=== PATIENT | male | born 1970 | race Caucasian/White ===

== ENCOUNTER 2016-10-11 09:43 | Day surgery (SDC) | payer MEDICAID, OTHER ==
[~2016-10-11 09:43] MED LIST: Lactated Ringers 1,000 ML IV SCH; Lidocaine 2% 5 ML SDV ONE; Propofol 200 MG/20 ML SDV ONE; Sodium Chloride 0.9% 10 ML Syringe FLUSH PRN; Sodium Chloride 0.9% 2.5 ML Syringe FLUSH PRN
--- NOTE | 2016-10-11 10:11 | PCM.PREANE ---
Preanesthetic Assessment - Anesthesia/Transfusion/Family Hx Anesthesia History: Prior Anesthesia Without Reaction Family History of Anesthesia Reaction: No Transfusion History: No Prior Transfusion(s) Intubation History: Unknown - Review of Systems General: No Symptoms Pulmonary: No Symptoms Cardiovascular: No Symptoms Gastrointestinal: Abdominal pain Neurological: No Symptoms Other: Reports: None - Physical Assessment Height: 1.73 m Weight: 88.451 kg ASA Class: 2 Mental Status: Alert & Oriented x3 Airway Class: Mallampati = 2 Dentition: Reports: Normal Dentition Thyro-Mental Finger Breadths: 2 Mouth Opening Finger Breadths: 2 ROM/Head Extension: Full Lungs: Clear to auscultation, Normal respiratory effort Cardiovascular: Regular Rate, Regular Rhythm, No Murmurs - Allergies Allergies/Adverse Reactions: Allergies Allergy/AdvReac Type Severity Reaction Status Date / Time No Known Allergies Allergy Verified 10/09/16 15:16 - Blood Blood Available: No - Anesthesia Plan Pre-Op Medication Ordered: None - Acknowledgements Anesthesia Type Planned: MAC Pt an Appropriate Candidate for the Planned Anesthesia: Yes Alternatives and Risks of Anesthesia Discussed w Pt/Guardian: Yes Pt/Guardian Understands and Agrees with Anesthesia Plan: Yes PreAnesthesia Questionnaire - Past Health History Medical/Surgical History: Denies Medical/Surgical History Cardiovascular History: Reports: Hypertension Gastrointestinal History: Reports: GERD, Helicobacter pylori (h/o helicobacter pylori) - Past Surgical History HEENT Surgical History: Reports: Oral surgery Musculoskeletal Surgical History: Reports: Other (see below) (foot surgery) - SUBSTANCE USE Smoking Status *Q: Never Smoker Second Hand Smoke Exposure: No Number of Drinks Per Day: 0 Recreational Drug Use History: No - HOME MEDS Home Medications: Home Meds Famotidine [Pepcid] 20 mg PO DAILY 10/09/16 [History] Finasteride 1 mg PO DAILY 10/09/16 [History] Lisinopril/Hydrochlorothiazide [Lisinopril-Hctz 10-12.5 mg Tab] 1 tab PO DAILY 10/09/16 [History] - CURRENT (IN HOUSE) MEDS Current Meds: Current Medications Lactated Ringer's (Ringers, Lactated) 1,000 mls @ 125 mls/hr IV ASDIRECTED SONDRA Last Admin: 10/11/16 09:52 Dose: 125 mls/hr Sodium Chloride (Saline Flush) 10 ml FLUSH ASDIRECTED PRN PRN Reason: Keep Vein Open Sodium Chloride (Saline Flush) 2.5 ml FLUSH ASDIRECTED PRN PRN Reason: Keep Vein Open Discontinued Medications Lidocaine (Xylocaine-Mpf 2%) Confirm Administered Dose 5 ml .ROUTE .STK-MED ONE Stop: 10/11/16 07:41 Propofol (Diprivan 20 Ml) Confirm Administered Dose 400 mg .ROUTE .STK-MED ONE Stop: 10/11/16 07:41
[2016-10-11] MEDS ORDERED: Propofol 200 MG/20 ML SDV ONE (11:43)
--- NOTE | 2016-10-11 12:06 | PCM.POSTAN ---
POST ANESTHESIA ASSESSMENT - MENTAL STATUS Mental Status: alert, oriented - RESPIRATORY Respiratory Status: respiratory rate WNL, airway patent, O2 saturation stable - CARDIOVASCULAR CV Status: pulse rate WNL, blood pressure stable - GASTROINTESTINAL GI Status: no symptoms - POST OP HYDRATION Hydration Status: adequate & stable - OBSERVATIONS Free Text/Narrative:: no anesthesia problems
--- NOTE | 2016-10-11 13:01 | PCM.OPNOTE ---
- General Post-Op/Procedure Note Date of Surgery/Procedure: 10/11/16 Operative Procedure(s): Diagnostic EGD Findings: Pyloric stricture Pre Op Diagnosis: Epigastric pain Post-Op Diagnosis: Pyloric stricture Anesthesia Technique: CLARA Primary Surgeon: Larisa Geronimo Condition: Good
--- NOTE | 2016-10-11 17:52 | OR ---
SURGEON: MIGUELANGEL RAY MD DATE OF PROCEDURE: 10/11/2016 PREOPERATIVE DIAGNOSIS: Epigastric pain. POSTOPERATIVE DIAGNOSIS: Pyloric stricture. PROCEDURE PERFORMED: Diagnostic esophagogastroduodenoscopy. INSTRUMENT USED: Olympus endoscope. ANESTHESIA: MAC. EXTENT OF EXAM: To the pylorus. PREPARATION: Good. LIMITATIONS: Pyloric stricture. INDICATIONS FOR EXAMINATION: The patient is a 46-year-old male with intermittent epigastric pain. The patient was scheduled back in June to have a diagnostic EGD performed. Due to insurance issues and concerns that there was nothing wrong with him, he cancelled the procedure. The patient returns and would like to have the procedure performed since the pain is still present. The patient and I discussed the procedure as well as expected perioperative course. We discussed the risks, including bleeding, infection, damage to surrounding structures, including perforation. The patient verbalized understanding and wishes to proceed. PROCEDURE IN DETAIL: The patient was brought to the endoscopy suite and placed in the beach chair position. A time-out was completed verifying the patient's name, age, date of , allergies, and procedure to be performed. A bite block was placed in the patient's mouth and monitored anesthesia care was induced. Continuous oxygen was provided via nasal cannula throughout the procedure. After adequate sedation was achieved, a well lubricated endoscope was passed down over the patient's tongue into the esophagus and down into the stomach. The endoscope was able to reach the pylorus, however, I was unable to transverse past the pylorus into the duodenum. The pylorus appeared strictured and I was unable to pass my scope through this despite multiple attempts and maneuvers. Biopsies were taken of the pylorus. The pylorus itself did not show any signs of overt malignancy. Pictures were taken of the pylorus itself. The scope was retroflexed to visualize the esophageal hiatus, which appeared normal. The remainder of the gastric mucosa appeared normal but biopsies were taken of the antrum, body, and fundus and sent for H. pylori testing. The scope was then brought into the esophagus and a photograph was taken at the GE junction, which appeared normal. The remainder of the esophageal mucosa appeared normal. The scope was removed from the patient and the procedure terminated. The patient tolerated the procedure well and was taken to the PACU in stable condition. ENDOSCOPIC DIAGNOSIS: Pyloric stricture. RECOMMENDATIONS: Followup in clinic in 1-[address] weeks[address] We will also place the patient on 40 mg of pantoprazole daily. DELICIA CANALES /[id number]
[2016-10-15 14:44] VITALS: BP 137/91
== END 2016-10-11 12:27 | disposition home or self-care (01) ==
LOC: MW.SDS 09:43
PROVIDERS: ATTEND Surgery
PROC: 0DB68ZX Excision of Stomach, Via Natural or Artificial Opening Endoscopic, Diagnostic (ICD-10-PCS; principal; 2016-10-11)
DX: K29.50 Unspecified chronic gastritis without bleeding (principal); K31.1 Adult hypertrophic pyloric stenosis; I10 Essential (primary) hypertension; K21.9 Gastro-esophageal reflux disease without esophagitis; Z98.890 Other specified postprocedural states; Z79.899 Other long term (current) drug therapy
CPT/HCPCS: 43239; J7120; 00740; 88305; 88312; J2704

== ENCOUNTER → 2016-10-26 | Outpatient (CLI) | payer MEDICAID ==
[~2016-10-26] MED LIST changes: +Iopamidol 755 MG/ML 500 ML Multipack Bottle IVPUSH STA; -Lactated Ringers 1,000 ML IV SCH; -Lidocaine 2% 5 ML SDV ONE; -Propofol 200 MG/20 ML SDV ONE; -Sodium Chloride 0.9% 10 ML Syringe FLUSH PRN; -Sodium Chloride 0.9% 2.5 ML Syringe FLUSH PRN
--- NOTE | 2016-10-26 20:22 | CT ---
EXAM DATE: 10/26/16 PATIENT'S AGE: 46 Patient: JOSE ACOSTA Facility: [place], [place] Site . Site : 1970 Study: CT Abdomen/Pelvis [id number]/12/2017 10:09:30 AM Ordering Physician: Juanpablo Peres Final Report: CLINICAL INFORMATION: 46-year-old male with upper abdominal symptoms, concern for possible adult ( acquired) hypertrophic pyloric stenosis. TECHNIQUE: Contrast-enhanced CT of the abdomen and pelvis was obtained in noncontrast, arterial, and venous phases. Enteric contrast was administered.Coronal and sagittal reformatted images were obtained. Contrast: 100 mL of Isovue 370 intravenous contrast was injected uneventfully prior to image acquisition. Radiation Dose Estimate (Total Exam DLP): 821.4 mGy-cm. COMPARISON: None available FINDINGS: Lower Chest: Lung bases: No focal airspace opacities or pleural effusions. Heart/Pericardium: Heart normal in size. No pericardial effusion. . Abdomen/Pelvis: Liver: Unremarkable. Gallbladder: Unremarkable. Spleen: Unremarkable. Adrenal glands: Unremarkable. Kidneys: Enhance symmetrically without hydronephrosis. Pancreas: Unremarkable. Lymph nodes: No retroperitoneal, mesenteric, inguinal, or pelvic adenopathy by CT criteria. Bowel: Stomach is normal in caliber without evidence for pyloric stenosis/ obstruction. Small and large bowel loops are normal in caliber without evidence for obstruction. Normal appendix is seen in the right lower quadrant. Urinary bladder: Limited evaluation due to underdistention. No gross pathology. Reproductive structures: Prostate normal in size. Coarse calcifications within the prostate likely represent sequela of prior prostatitis. No abdominal/pelvis ascites or free intraperitoneal air. Musculoskeletal: : There is grade 1 anterolisthesis of L5 on S1. Visualized osseous structures otherwise preserved. IMPRESSION: 1. No evidence for gastric abnormality to suggest pyloric stenosis/obstruction. Bowel is normal in caliber without evidence for obstruction. PLEASE NOTE THAT ALL CT SCANS AT THIS FACILITY USE DOSE MODULATION, ITERATIVE RECONSTRUCTION, AND/OR WEIGHT-BASED DOSING WHEN APPROPRIATE TO REDUCE RADIATION TO LOW REASONABLY ACHIEVABLE. Dictated by Larry Robles MD @ Oct 26 2016 11:45AM (Electronic Signature) Report Signed by Proxy. [facility]
== END ==
LOC: MW.DI 09:17
PROVIDERS: ATTEND Surgery
DX: K31.1 Adult hypertrophic pyloric stenosis (principal)
CPT/HCPCS: 74177; Q9967

== ENCOUNTER 2019-02-11 07:32 | Day surgery (SDC) | payer MEDICAID ==
[~2019-02-11 07:32] MED LIST changes: -Iopamidol 755 MG/ML 500 ML Multipack Bottle IVPUSH STA; +Lactated Ringers 1,000 ML IV SCH
--- NOTE | 2019-02-11 08:07 | PCM.PREANE ---
Preanesthetic Assessment - Anesthesia/Transfusion/Family Hx Anesthesia History: Prior Anesthesia Without Reaction Family History of Anesthesia Reaction: No Transfusion History: No Prior Transfusion(s) Intubation History: Unknown - Review of Systems General: No Symptoms Pulmonary: No Symptoms Cardiovascular: No Symptoms Gastrointestinal: Diarrhea, Hematochezia Neurological: No Symptoms Other: Reports: None - Physical Assessment NPO Status Date: 02/10/19 NPO Status Time: 11:59 Vital Signs: Last Vital Signs Temp 35.8 C 02/11/19 07:45 Pulse 89 02/11/19 07:45 Resp 16 02/11/19 07:45 BP 120/80 02/11/19 07:45 Pulse Ox 96 02/11/19 07:45 Height: 5 ft 8 in Weight: 87.997 kg ASA Class: 2 Mental Status: Alert & Oriented x3 Airway Class: Mallampati = 2 Dentition: Reports: Normal Dentition Thyro-Mental Finger Breadths: 3 Mouth Opening Finger Breadths: 3 ROM/Head Extension: Full Lungs: Clear to Auscultation, Normal Respiratory Effort Cardiovascular: Regular Rate, Regular Rhythm - Allergies Allergies/Adverse Reactions: Allergies Allergy/AdvReac Type Severity Reaction Status Date / Time No Known Allergies Allergy Verified 02/06/19 10:21 - Blood Blood Available: No - Anesthesia Plan Pre-Op Medication Ordered: None - Acknowledgements Anesthesia Type Planned: MAC Pt an Appropriate Candidate for the Planned Anesthesia: Yes Alternatives and Risks of Anesthesia Discussed w Pt/Guardian: Yes Pt/Guardian Understands and Agrees with Anesthesia Plan: Yes PreAnesthesia Questionnaire - Past Health History Medical/Surgical History: Denies Medical/Surgical History HEENT History: Reports: None Cardiovascular History: Reports: Hypertension Respiratory History: Reports: None Gastrointestinal History: Reports: Chronic Diarrhea, GERD, Helicobacter Pylori Genitourinary History: Reports: None Musculoskeletal History: Reports: None Neurological History: Reports: None Psychiatric History: Reports: Anxiety Endocrine/Metabolic History: Reports: None Hematologic History: Reports: None Immunologic History: Reports: None Oncologic (Cancer) History: Reports: None Dermatologic History: Reports: None - Past Surgical History Head Surgeries/Procedures: Reports: None HEENT Surgical History: Reports: Oral Surgery Cardiovascular Surgical History: Reports: None Respiratory Surgical History: Reports: None GI Surgical History: Reports: EGD (2 years ago) Male Surgical History: Reports: None Endocrine Surgical History: Reports: None Neurological Surgical History: Reports: None Musculoskeletal Surgical History: Reports: Other (See Below) Other Musculoskeletal Surgeries/Procedures:: achillies tendon repair Oncologic Surgical History: Reports: None Dermatological Surgical History: Reports: None - SUBSTANCE USE Smoking Status *Q: Never Smoker Recreational Drug Type: Reports: Marijuana/Hashish - HOME MEDS Home Medications: Home Meds Finasteride 1 mg PO DAILY 10/09/16 [History] Lisinopril/Hydrochlorothiazide [Lisinopril-Hctz 10-12.5 mg Tab] 1 tab PO DAILY 10/09/16 [History] Aspirin [[place] Aspirin] 81 mg PO DAILY 02/06/19 [History] - CURRENT (IN HOUSE) MEDS Current Meds: Current Medications Lactated Ringer's (Ringers, Lactated) 1,000 mls @ 125 mls/hr IV ASDIRECTED [facility] Last Admin: 02/11/19 07:45 Dose: 125 mls/hr
[2019-02-11] MEDS ORDERED: Midazolam 1 MG/ML 2 ML SDV ONE (09:04)
[2019-02-11] MEDS ORDERED: Propofol 200 MG/20 ML SDV ONE ×4 (09:04→09:43)
[2019-02-11] MEDS ORDERED: Lidocaine 2% 5 ML SDV ONE (09:04)
[2019-02-11] MEDS ORDERED: Ondansetron 4 MG/2 ML SDV IVPUSH ONE (10:15)
[2019-02-11] MEDS ORDERED: Ondansetron 4 MG/2 ML SDV ONE (10:16)
--- NOTE | 2019-02-11 10:31 | PCM.OPNOTE ---
- General Post-Op/Procedure Note Date of Surgery/Procedure: 02/11/19 Operative Procedure(s): egd w bx and colonoscopy w biopsy Findings: see dict [id number] Pre Op Diagnosis: rectal bleed Post-Op Diagnosis: Same Anesthesia Technique: Moderate Sedation Primary Surgeon: Aldo Mahmood Pathology: egd bx colon bx Complications: None Condition: Good
--- NOTE | 2019-02-11 11:02 | PCM.POSTAN ---
POST ANESTHESIA ASSESSMENT - MENTAL STATUS Mental Status: Alert, Oriented - VITAL SIGNS Vital Signs: Last Vital Signs Temp 36.3 C 02/11/19 10:39 Pulse 69 02/11/19 10:39 Resp 16 02/11/19 10:39 BP 158/83 H 02/11/19 10:39 Pulse Ox 97 02/11/19 10:39 - RESPIRATORY Respiratory Status: Respiratory Rate WNL, Airway Patent, O2 Saturation Stable - CARDIOVASCULAR CV Status: Pulse Rate WNL, Blood Pressure Stable - GASTROINTESTINAL GI Status: No Symptoms - PAIN Pain Score: 0 - POST OP HYDRATION Hydration Status: Adequate & Stable - OBSERVATIONS Free Text/Narrative:: no anesthesia problems
--- NOTE | 2019-02-11 11:03 | PCM48HPAN ---
Post Anesthesia Note - EVALUATION WITHIN 48HRS OF ANESTHETIC Vital Signs in Normal Range: Yes Patient Participated in Evaluation: Yes Respiratory Function Stable: Yes Airway Patent: Yes Cardiovascular Function Stable: Yes Hydration Status Stable: Yes Pain Control Satisfactory: Yes Nausea and Vomiting Control Satisfactory: Yes Mental Status Recovered: Yes Vital Signs: Last Vital Signs Temp 36.3 C 02/11/19 10:39 Pulse 69 02/11/19 10:39 Resp 16 02/11/19 10:39 BP 158/83 H 02/11/19 10:39 Pulse Ox 97 02/11/19 10:39 - COMMENTS/OBSERVATIONS Free Text/Narrative:: no anesthesia problems
[2019-02-11 11:12] VITALS: BP 157/91
--- NOTE | 2019-02-11 14:16 | OR ---
SURGEON: Aldo Mahmood MD DATE OF PROCEDURE: 02/11/2019 PREOPERATIVE DIAGNOSES: Rectal bleeding and change in bowel habit. POSTOPERATIVE DIAGNOSES: EGD findings are gastritis and gastroesophageal reflux disease and colonoscopy finding is colitis. PROCEDURES PERFORMED: Esophagogastroduodenoscopy with biopsy and colonoscopy with biopsy. DESCRIPTION OF PROCEDURE: EGD: The patient was taken to the endoscopy room, and with the AIR DUCT MECHANIC, Diprivan was administered. A well-lubricated EGD scope was gently inserted through the oropharynx, down the esophagus, passing through the gastroesophageal junction, into the stomach. The mucosa was examined upon the passage. Any etiology will be noted. Once in the stomach, we continued to advance to the distal antrum, passed through the pylorus into the second portion of the duodenum. Again, the mucosa was examined for any abnormality and etiology. The scope was then retrieved back to the stomach and then retroflexed to look at the fundus of the stomach. If a biopsy was indicated, we will biopsy the antrum, body, and gastroesophageal junction. The air will be sucked out while the scope is retrieved to reduce the patient's discomfort. The patient tolerated the procedure well. There were no intraoperative complications. Dr. Mahmood was present through the whole procedure. Prior to surgery, a time-out had been called, the patient identified, procedure identified and antibiotic administered. The patient was taken to the endoscopy room. A time out was called, patient identified, and procedure identified. Diprivan was then administrated. Patient went from awake to sleep, hearing doctor talking or door closing is normal. Perineum inspection and digital examination were then performed. A well- lubricated colonoscope was gently inserted through the rectum, advanced past the rectosigmoid junction, the descending colon, splenic flexure, transverse colon, hepatic flexure, ascending colon, arrived to the cecum. Cecum was identified as dictated in the finding. Then the scope was carefully withdrawn while attention was paid to the mucosal surface for any abnormality. Air will be sucked out during the scope withdrawal. At the rectum, retroflexed to examine any rectal diseases, fistula or hemorrhoids. During mucosal examination, abnormality or polyp was noted; picture taken and biopsy performed. Patient tolerated procedure well. There were no intraoperative complications, and Dr. Mahmood was present throughout the whole procedure. FINDINGS: EGD findings in detail: 1. The patient is easily sedated with AIR DUCT MECH[employer]IC and Diprivan, the patient is soundly snoring. 2. Oropharynx and proximal esophagus are free of disease and GE junction at 40 shows moderate salmon-colored change, suggests there is some mild to moderate acid reflux. Stomach rugae are normal in appearance and antrum is quite inflamed in several areas, looks like it is a healed ulcer, and has moderate amount of inflammation. Duodenum was grossly normal. Retroflexed look at the fundus of stomach, there is no hiatal hernia. Biopsy done at antrum, which in several area is inflamed, and biopsied at those area; biopsied at body; and biopsied at GE junction at 40 and sucked out the gas while scope pulling out. During the whole study, there is no food particle or bile observed, except in the duodenum, there was some bile and there were a couple of spots of blood in the stomach, very very small, tiny, but it is there. Colonoscopy findings: 1. The patient is easily sedated with AIR DUCT MECHANIC and Diprivan, the patient is soundly snoring. 2. Bowel prep is average with some liquid stool, no semi-formed stool. Colon is rather straightforward. Cecum indicated by ileocecal fold, one-to-one indentation, and appendiceal orifice. Light emittance is not observed and ScopeGuide is pointing south. The patient does not have diverticulosis or polyp, but the patient has moderate to severe colitis from the anal area all the way to almost like 40 cm when the scope came out. So concentrated on the sigmoid to the left colon, severe colitis, and in some area some whitish exudate, suggests possible pseudomembranes. Also, a localized spot of inflammation at around 90 cm when the scope went in to do the biopsy and also all cecum biopsied thinking about inflammatory bowel disease and then the colon was biopsied in various areas as indicated by the pathology report like 40 cm, 30 cm, and 10 cm and anal verge. Inflammation seemed to be concentrated around 0 to 40 cm and getting much worse as we were getting close to the anal area, but there is no blood, it is just very inflamed. The patient would benefit from: a. Start PPI for his gastritis, 20 mg omeprazole every day and refill three times for one month. b. The patient probably will benefit to have a GI consult in light of the situation that has been going on for more than month or years. The patient probably would benefit to be followed by GI if it is confirmed inflammatory bowel disease. LIANS / MODL /[id number]
== END 2019-02-11 11:10 | disposition home or self-care (01) ==
LOC: MW.SDS 07:32
PROVIDERS: ATTEND Surgery
DX: K52.9 Noninfective gastroenteritis and colitis, unspecified (principal); K63.89 Other specified diseases of intestine; K29.51 Unspecified chronic gastritis with bleeding; K21.0 Gastro-esophageal reflux disease with esophagitis; K31.89 Other diseases of stomach and duodenum; K42.9 Umbilical hernia without obstruction or gangrene; I10 Essential (primary) hypertension; F41.9 Anxiety disorder, unspecified; E66.3 Overweight; Z68.29 Body mass index [BMI] 29.0-29.9, adult; Z79.82 Long term (current) use of aspirin; Z79.899 Other long term (current) drug therapy
CPT/HCPCS: 43239; 45380; J2001; J2250; J2405; J2704; J7120; 00813